=== PATIENT | male | born 1985 | race Caucasian/White ===

== ENCOUNTER 2016-12-16 19:02 | Emergency (ER) ==
[2016-12-16] MEDS ORDERED: LIDOCAINE 1 % AMP 5 ML (SUTURES) SUBCUT STA (19:03)
[2016-12-16 19:09] VITALS: BP 123/63; TEMP 98.6; BMI 21.7
--- NOTE | 2016-12-16 19:19 | ED.PDOC ---
General ED Provider: Dr. GWENDOLYN PEREIRA-ER Chief Complaint: Finger Laceration Stated Complaint: i cut my thumb with a razor Time Seen by Physician: 19:10 Information Source: Patient Exam Limitations: No limitations Nursing and Triage Documentation Reviewed and Agree: Yes Skin Complaint Exam - Laceration/Abrasion/Hand Complaint/Exam Location of Injury: Left, Digit #1 Mechanism of Injury: Laceration, Sharp trauma Onset/Duration: 30 min Symptoms Are: Still present Initial Severity: Mild Current Severity: None Aggravating: Movement Alleviating: Compression Associated Signs and Symptoms: Denies: Fever, Chills, Erythema, Numbness, Tingling Differential Diagnoses: Laceration Review of Systems - Review Of Systems Constitutional: Reports: No symptoms Eyes: Reports: No symptoms Ears, Nose, Mouth, Throat: Reports: No symptoms Respiratory: Reports: No symptoms Cardiac: Reports: No symptoms GI: Reports: No symptoms : Reports: No symptoms Musculoskeletal: Reports: No symptoms Skin: Reports: No symptoms Neurological: Reports: No symptoms Endocrine: Reports: No symptoms Hematologic/Lymphatic: Reports: No symptoms All Other Systems: Reviewed and Negative Past Medical History - Past Medical History Endocrine: Reports: None Cardiovascular: Reports: None Respiratory: Reports: None Hematological: Reports: None Gastrointestinal: Reports: None Genitourinary: Reports: None Neuro/Psych: Reports: None Musculoskeletal: Reports: None Cancer: Reports: None - Surgical History General Surgical History: Reports: Unknown - Family History Family History: Reports: Unknown - Social History Smoking Status: Current every day smoker, Light tobacco smoker Hx Substance Use: No Alcohol Screening: Occasionally Lives: With family - Immunizations Tetanus Shot up to Date: Yes (FEB, 2016) Physical Exam - Physical Exam Appearance: Well-appearing, No pain distress, Well-nourished Eyes: SERGEY, EOMI, Conjunctiva clear ENT: Ears normal Neck: Supple Respiratory: Airway patent Cardiovascular: RRR, Pulses normal, No rub, No murmur GI/: Soft, Nontender, No masses, Bowel sounds normal, No Organomegaly Musculoskeletal: Normal strength, ROM intact, No edema, No calf tenderness Skin: Warm Neurological: Sensation intact, Motor intact, Reflexes intact, Cranial nerves intact, Alert, Oriented Psychiatric: Affect appropriate, Mood appropriate Procedures - Laceration/Wound Repair No standard instances Wound Description: Linear Wound Length (cm): 3.5 cm left thumb Wound Explored: Clean Wound Irrigated: Yes Wound Prep: Betadine Anesthesia: Lidocaine Wound Repaired With: Sutures Suture Size and Type: 4.0 prolene Number of Sutures: 6 Layer Closure?: No Sterile Dressing Applied?: Yes Splint Applied?: No Sling Applied?: No Re-Evaluation - Re-Evaluation Time of Re-Evaluation: 19:18 Status: Improved Vital Signs Stable: No Pain Level: 1 Appearance: NAD Lungs: Clear Skin: Warm and Dry Neuro: Alert and Oriented X3 CV: RRR Additional Comments: he is able to flex and extend the thumb without difficulty- -no tendon invol Critical Care Note - Critical Care Note Total Time (mins): 0 Course - Course Orders, Labs, Meds: Orders Category Date Time Status Lidocaine HCl/Pf [Lidocaine 1 % Amp 5 ml (Sutures)] MEDS 12/16/16 19:03 Discontinued 5 ml SUBCUT ONCE STA Medications Discontinued Medications Generic Name Dose Route Start Last Admin Trade Name Freq PRN Reason Stop Dose Admin Lidocaine HCl 5 ml 12/16/16 19:03 12/16/16 19:07 Lidocaine 1 % Amp 5 Ml (Sutures) SUBCUT 12/16/16 19:04 5 ml ONCE STA Administration Vital Signs: Temp Pulse Resp BP Pulse Ox 12/16/16 19:03 98.6 F 104 H 20 123/63 100 Departure - Departure Time of Disposition: 19:19 Disposition: HOME SELF-CARE Discharge Problem: Laceration of finger Instructions: Care For Your Stitches (ED), Laceration (ED), Finger Laceration ( ED) Condition: Good Pt referred to PMD for follow-up: Yes Additional Instructions: keep clean and dry--return in 7 days for suture removal--return sooner if signs of infection Allergies/Adverse Reactions: Allergies No Known Allergies Allergy (Unverified 02/24/16 20:21) Home Medications: Ambulatory Orders Ibuprofen/Diphenhydramine Cit [Advil Pm Caplet] 1 cap PO BEDTIME PRN 02/24/16 Disposition Discussed With: Patient
== END 2016-12-16 19:35 | disposition home or self-care (01) ==
LOC: ED 19:02
DX: S61.012A Laceration without foreign body of left thumb without damage to nail, initial encounter (principal); W45.8XXA Other foreign body or object entering through skin, initial encounter; F17.210 Nicotine dependence, cigarettes, uncomplicated
CPT/HCPCS: 96372; 99283

== ENCOUNTER 2017-12-24 02:09 | Emergency (ER) ==
[2017-12-24 02:21] VITALS: BP 128/82; TEMP 97.1; BMI 25.0
[2017-12-24] MEDS ORDERED: LIDOCAINE HCL 1% SDV SUBCUT STA (02:44)
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
== END 2017-12-24 08:35 | disposition home or self-care (01) ==
LOC: ED 02:09
DX: S51.812A Laceration without foreign body of left forearm, initial encounter (principal); S51.012A Laceration without foreign body of left elbow, initial encounter; F10.129 Alcohol abuse with intoxication, unspecified; F17.210 Nicotine dependence, cigarettes, uncomplicated; W25.XXXA Contact with sharp glass, initial encounter
CPT/HCPCS: 99283